=== PATIENT | female | born 1930 | race Caucasian/White ===

== ENCOUNTER → 2017-06-18 | Outpatient (CLI) | payer MEDICARE, BC ==
[~2017-06-18] MED LIST: ASPIRIN PO; CERTAGEN PO; COD LIVER OIL; FISH OIL 1,0001 CAP PO; PRAVACHOL PO; VITAMIN B; VITAMIN C DAILY; [UNRECOGNIZED DRUG - OTHER]
--- NOTE | ~2017-06-18 | US37 ---
[facility] A Service of [facility] RADIOLOGY TEXT RESULTS PATIENT: CHATO CRAWLEY LOCATION: [facility] : 32 UNIT #: [id number] AGE: [address]: Juan C Sandoval MD SEX: F ORDER DR: [id number] [address] [address] [id number] O MR#: [id number] Acc #: [id number] NAME: CHATO CRAWLEY : 1930 SEX: F STUDY DATE/TIME: 06/18/2017 10:01 UNIT: [facility] ROOM: STUDY DESCRIPTION: US Carotid W/Doppler Bilateral Attending Physician: Juan C Sandoval M.D. Ordering Physician: Juan C Sandoval M.D. Primary Care Physician: Juan C Sandoval M.D. MEDICAL IMAGING REPORT This report is preliminary unless electronic signature is present. EXAMINATION Bilateral carotid Doppler ultrasound. DATE 06/18/2017 HISTORY Carotid bruit. Hypertension. COMPARISON None. FINDINGS Real-time shook-scale, color Doppler and spectral Doppler imaging was performed of the bilateral cervical carotid arteries and vertebral arteries. Estimated stenosis is based on standard NASCET methodology. Mild soft and calcific plaquing is demonstrated within the right carotid bulb and proximal right external carotid artery. There is some mildly eccentric soft plaquing within the proximal right internal carotid artery. Right internal carotid artery peak systolic velocity proximal segment 92.3 cm/sec, mid segment 90.0 cm/sec, distal segment 78.6 cm/sec, indicating less than 50% luminal stenosis by NASCET methodology. Normal spectral Doppler waveform is demonstrated. Right external carotid artery is patent with normal spectral Doppler waveform. The right vertebral arteries patent with normal antegrade flow. Mild soft and calcific plaquing is demonstrated within the left carotid bulb extending into the left external carotid arteries. There is mild eccentric calcific plaque within the proximal left internal carotid artery. Peak systolic velocity in the left internal carotid artery proximal [facility] A Service of [facility] RADIOLOGY TEXT RESULTS PATIENT: CHAT[facility] CRAWLEY [id number] 32 UNIT #: [id number] AGE: [address]: Juan C Sandoval MD SEX: F ORDER DR: segment 103.3 cm/sec, mid segment 93.2 cm/sec, distal segment 101.3 cm/sec, indicating less than 50% luminal stenosis by NASCET methodology. Normal spectral Doppler waveform is demonstrated. The left external carotid artery is patent with normal waveform. The left vertebral artery is patent with normal antegrade flow. IMPRESSION 1. There is mild atherosclerotic plaquing within bilateral carotid bulbs and proximal internal carotid arteries, right slightly greater than the left. 2. There is less than 50% luminal stenosis in the bilateral internal carotid arteries by NASCET criteria. No hemodynamically significant stenosis is seen. 3. External carotid arteries are patent. 4. Patency and antegrade flow in the bilateral vertebral arteries. Dictated by... Alejandra Judge M.D. THIS IS AN ELECTRONICALLY VERIFIED REPORT Alejandra Judge M.D. at 06/25/2017 8:43 AM ECHO/torri TD: 06/18/2017 17:44 JOB #: [id number] MEDICAL IMAGING REPORT Page 1 of 1
== END | disposition home or self-care (01) ==
LOC: SGUS 08:30
DX: R09.89 Other specified symptoms and signs involving the circulatory and respiratory systems (principal); I10 Essential (primary) hypertension; I65.23 Occlusion and stenosis of bilateral carotid arteries
CPT/HCPCS: 93880